=== PATIENT | female | born 1985 | race American Indian/Alaskan Native ===

== ENCOUNTER 2016-08-29 13:35 | Emergency (ER) | payer MEDICAID ==
[2016-08-29 13:52] VITALS: RESP 18
[2016-08-29] MEDS ORDERED: IBUPROFEN 600 MG TAB PO ONE (14:00)
--- NOTE | 2016-08-29 14:27 | EDPHY ---
H & P Time Seen by Provider: 08/29/16 13:52 HPI/ROS: HPI: 22-year-old female presents to emergency department with chief concern left-sided rib pain and shortness of breath. Onset suddenly this morning at 1130 when she tripped, falling, landing on her daughter's bike. Did not strike her head or incur other injury. Denies headache, dizziness, neck or back pain. Denies fever, chills, nasal congestion, cough, pleuritic chest pain, abdominal pain, nausea or vomiting. No aggravating or alleviating factors. Denies significant past medical history. ROS:10 point review of systems is negative other than as stated in HPI Smoking Status: Current every day smoker Physical Exam: Vital signs stable, reviewed by me General: Awake, alert, calm, cooperative. No acute distress. Head: Normalocephalic. Atraumatic. EENT: PERRLA. EOMI. No pallor or injection. Anicteric. No nystagmus. No injection. TMs intact bilaterally with normal landmarks. Neck: Supple, no midline tenderness. Full range of motion Respiratory: Breathing unlabored. Breath sounds equal bilaterally and clear to auscultation. No adventitious sounds. CV: Chest with left-sided point tenderness that is reproducible. Heart rate regular. S1/S2. No murmur, distal pulses 2+ bilaterally. Brisk cap refill all extremities. GI: Abdomen soft, nontender. Bowel sounds normoactive and positive x4 quadrants. : No CVA or flank tenderness. Neuro: Alert. Oriented x 3. Speech clear. Nonfocal cranial nerves throughout. Sensation intact all extremities. Skin: Skin warm, dry, intact. No rashes, abrasions, or lacerations. Skin turgor normal. Extremities: Full range of motion in all 4 extremities. Strength 5+ all extremities. Constitutional: Initial Vital Signs Temperature (C) 36.5 C 08/29/16 13:48 Heart Rate 81 08/29/16 13:48 Respiratory Rate 18 08/29/16 13:48 Blood Pressure 97/78 L 08/29/16 13:48 O2 Sat (%) 97 08/29/16 13:48 O2 Delivery Mode Room Air Allergies/Adverse Reactions: Penicillins Allergy (Verified 08/29/16 13:48) Home Medications: Medication Instructions Recorded Hydrocodone/APAP 5/325 [[place] 1 tab PO Q4H PRN #10 tab 08/29/16325 (*)] Medical Decision Making - Diagnostics Imaging: Final report pending at time of this dictation however there is no evidence of pneumothorax or rib fractures that I appreciate. ED Course/Re-evaluation: 22-year-old female presents to emergency department with left-sided rib pain after a fall today. Did not strike her head. No neck or back pain. No evidence of pneumothorax on chest x-ray. No visible fractures to left ribs on x -ray. Differential Diagnosis: Differential includes but is not limited to rib fracture, rib contusion, pneumothorax - Data Points Medications Given: Discontinued Medications Ibuprofen (Motrin) 600 mg PO EDNOW ONE Stop: 08/29/16 14:01 Last Admin: 08/29/16 14:03 Dose: 600 mg Departure - Departure Disposition: Home, Routine, Self-Care Clinical Impression: Contusion of rib on left side Qualifiers: Encounter type: initial encounter Qualified Code(s): S20.212A - Contusion of left front wall of thorax, initial encounter Condition: Good Instructions: Rib Contusion (ED) Additional Instructions: Plan: You may use 600 mg of ibuprofen every 6 hours for fever, inflammation, or pain. Always take ibuprofen with food and stay well hydrated while taking. Do not exceed the maximum allowable dose in a 24 hour period which is 2400 mg. For more severe pain, 1 [place] every 4 hours as needed--Never drink or drive while taking this medication. This medication impairs decision making capacity so do not work or sign important documents while taking. This medication its constipating so drink plenty of fluids and consider an [id number] stool softener such as docusate sodium (Colace) while taking this medication. This medication has addictive properties. You should use the least amount for the shortest amount of time. [facility] do not refill narcotic pain medication prescriptions. This is a hospital policy. You will need to follow up as indicated for recheck for further narcotic refills. [facility] within the next 2-3 days for recheck without fail-- When you call to schedule appointment, please let the office know you are an " ER follow up" appointment" 12-15 conscious deep breaths hourly while awake to help prevent pneumonia Referrals: NONE *PRIMARY CARE P,. [Primary Care Provider] - As per Instructions [facility] [Outside] - As per Instructions Stand Alone Forms: Statement of Treatment Prescriptions: Hydrocodone/APAP 5/325 [[place] 5/325 (*)] 1 tab PO Q4H PRN #10 tab PRN Reason: Pain, Moderate
[2016-08-29 14:59] VITALS: BP 119/67; PULSE 60; TEMP 97.9; O2SAT 98
== END 2016-08-29 14:59 | disposition home or self-care (01) ==
DX: S20.212A Contusion of left front wall of thorax, initial encounter (principal); F17.200 Nicotine dependence, unspecified, uncomplicated; W01.0XXA Fall on same level from slipping, tripping and stumbling without subsequent striking against object, initial encounter

== ENCOUNTER 2016-09-02 14:24 | Emergency (ER) | payer MEDICAID ==
[2016-09-02 14:29] VITALS: PULSE 82; RESP 16; O2SAT 100
--- NOTE | 2016-09-02 15:02 | EDPHY ---
H & P Stated Complaint: Here 4 days ago w/R rib inj;felt pop this a.m when she stretched Time Seen by Provider: 09/02/16 14:53 HPI/ROS: CHIEF COMPLAINT: LEFT RIB PAIN HISTORY OF PRESENT ILLNESS: Patient is a 30-year-old female who was seen here 3 days ago complaining of left-sided rib pain. She fell onto her child bike. She had bruising to her left rib cage. X-rays were unremarkable for fractures and she is discharged with pain medication and diagnosis of contusion. She states that today she was rolling over in bed and stretched and her loud pop and had sudden pain. She denies shortness of breath. The pain has been severe ever since. REVIEW OF SYSTEMS: Constitutional: denies: chills, fever, recent illness, recent injury EENTM: denies: blurred vision, double vision, nose congestion Respiratory: denies: cough, shortness of breath Cardiac: denies: chest pain, irregular heart rate, lightheadedness, palpitations Gastrointestinal/Abdominal: denies: abdominal pain, diarrhea, nausea, vomiting, blood streaked stools Genitourinary: denies: dysuria, frequency, hematuria, pain Musculoskeletal: See HPI Skin: denies: lesions, rash, jaundice, bruising Neurological: denies: headache, numbness, paresthesia, tingling, dizziness, weakness Hematologic/Lymphatic: denies: blood clots, easy bleeding, easy bruising Immunologic/allergic: denies: HIV/AIDS, transplant EXAM: GENERAL: Well-appearing, well-nourished and in no acute distress. HEAD: Atraumatic, normocephalic. EYES: Pupils equal round and reactive to light, extraocular movements intact, sclera anicteric, conjunctiva are normal. ENT: TMs normal, nares patent, oropharynx clear without exudates. Moist mucous membranes. NECK: Normal range of motion, supple without lymphadenopathy or JVD. LUNGS: Left-sided midline axillary rib bruising tenderness. No crepitus. with Breath sounds clear to auscultation bilaterally and equal. No wheezes rales or rhonchi. HEART: Regular rate and rhythm without murmurs, rubs or gallops. ABDOMEN: Soft, nontender, normoactive bowel sounds. No guarding, no rebound. No masses appreciated. BACK: No CVA tenderness, no spinal tenderness, step-offs or deformities EXTREMITIES: Normal range of motion, no pitting or edema. No clubbing or cyanosis. NEUROLOGICAL: Cranial nerves II through XII grossly intact. Normal speech, normal gait. 5/5 strength, normal movement in all extremities, normal sensation PSYCH: Normal mood, normal affect. SKIN: Warm, dry, normal turgor, no visible rashes or lesions. Source: Patient Exam Limitations: No limitations - Personal History LMP (Females 10-55): 8-14 Days Ago Current Tetanus Diphtheria and Acellular Pertussis (TDAP): Yes - Medical/Surgical History Hx Asthma: No Hx Chronic Respiratory Disease: No Hx Diabetes: No Hx Cardiac Disease: No Hx Renal Disease: No Hx Cirrhosis: No Hx Alcoholism: No Hx HIV/AIDS: No Hx Splenectomy or Spleen Trauma: No Other PMH: appy - Family History Significant Family History: No pertinent family hx - Social History Smoking Status: Current every day smoker Alcohol Use: Sober Drug Use: None Constitutional: Initial Vital Signs Temperature (C) 36.4 C 09/02/16 14:25 Heart Rate 82 09/02/16 14:25 Respiratory Rate 16 09/02/16 14:25 Blood Pressure 107/70 09/02/16 14:25 O2 Sat (%) 100 09/02/16 14:25 O2 Delivery Mode Room Air Allergies/Adverse Reactions: Penicillins Allergy (Verified 09/02/16 14:24) Home Medications: Medication Instructions Recorded Hydrocodone/APAP 5/325 [[place] 1 tab PO Q4H PRN #10 tab 08/29/16 5/325 (*)] oxyCODONE/APAP 5/325 [Percocet 1 - 2 tab PO Q4H PRN #20 tab 09/02/16 5/325 (*)] Medical Decision Making - Diagnostics Imaging: X-ray: chest x-ray was obtained. I viewed the images myself on the PACS system. My interpretation of the images is: Nondisplaced rib fracture. The radiologist interpretation is pending. ED Course/Re-evaluation: 3:30 p.m. we discussed the x-ray results. I will treat the patient with Percocet for pain. She states the Vicodin not work well. She is also requesting a work note. 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 Differential Diagnosis: Partial list of the Differential diagnosis considered include but were not limited to; contusion, fracture, pneumothorax and although unlikely based on the history and physical exam, I also considered pneumonia, PE, acute coronary disease. I discussed these differential diagnoses and the plan with the patient as well as the usual and expected course. The patient understands that the diagnosis is provisional and that in medicine we are not always correct and that further workup is often warranted. Usual and customary warnings were given. All of the patient's questions were answered. The patient was instructed to return to the emergency department should the symptoms at all worsen or return, otherwise to followup with the physician as we discussed. Departure - Departure Disposition: Home, Routine, Self-Care Clinical Impression: Closed rib fracture Qualifiers: Encounter type: initial encounter Rib fracture type: single rib Laterality: left Qualified Code(s): S22.32XA - Fracture of one rib, left side, initial encounter for closed fracture Condition: Fair Instructions: Rib Fracture (ED) Referrals: Hudson Liu MD [Medical Doctor] - As per Instructions Stand Alone Forms: Work Limited Duty Prescriptions: oxyCODONE/APAP 5/325 [Percocet 5/325 (*)] 1 - 2 tab PO Q4H PRN #20 tab PRN Reason: Pain, Severe
[2016-09-02] MEDS ORDERED: ACETAMINOPHEN 500 MG TAB ONE (15:05)
[2016-09-02 15:49] VITALS: BP 114/86; TEMP 97.7
== END 2016-09-02 15:49 | disposition home or self-care (01) ==
DX: S22.32XA Fracture of one rib, left side, initial encounter for closed fracture (principal); F17.200 Nicotine dependence, unspecified, uncomplicated; X58.XXXA Exposure to other specified factors, initial encounter; Y93.89 Activity, other specified

== ENCOUNTER 2017-08-18 09:53 | Emergency (ER) | payer SELFPAY ==
[2017-08-18 09:59] VITALS: BP 104/77; PULSE 82; RESP 16; TEMP 97.9; O2SAT 99
--- NOTE | 2017-08-18 10:23 | EDPHY ---
H & P Smoking Status: Current every day smoker Time Seen by Provider: 08/18/17 10:17 HPI/ROS: Chief complaint: Heavy menstrual cycle with clot passage History of present illness: This is a 31-year-old female who presents to the emergency department for evaluation of a heavy menstrual cycle. Patient states she started her menstrual cycle 2 days ago. This is normal for her. She is regular. However it appears more heavy than usual. There has been some clot passage. She denies other associated signs or symptoms including no actual pain associated with the bleeding. No systemic symptoms such as lightheadedness , dizziness or fatigue. Review of systems: A 10 point review of systems was obtained and other than described above was negative (Burt Zimmerman) Physical Exam: General Appearance: Alert, nontoxic. Eyes: Pupils equal and round no injection. Respiratory: Chest is non tender, lungs are clear to auscultation. Cardiac: regular rate and rhythm Gastrointestinal: Abdomen is soft and non tender, no masses, bowel sounds normal. Musculoskeletal: Neck is supple and non tender. Extremities have full range of motion and are non tender. Skin: No rashes or lesions. (Burt Zimmerman) Constitutional: Initial Vital Signs Temperature (C) 36.6 C 08/18/17 09:57 Heart Rate 82 08/18/17 09:57 Respiratory Rate 16 08/18/17 09:57 Blood Pressure 104/77 08/18/17 09:57 O2 Sat (%) 99 08/18/17 09:57 O2 Delivery Mode Room Air Allergies/Adverse Reactions: Penicillins Allergy (Verified 08/18/17 09:56) Home Medications: Medication Instructions Recorded NK [No Known Home Meds] 08/18/17 MDM/Departure - [facility] ED Course/Re-evaluation: Patient seen under the supervision of my secondary supervising physician Dr. Emilie Mao. Patient presents to the emergency department with a heavy menstrual cycle. She is nontoxic. Vital signs are stable. Blood studies are unremarkable. I believe patient is appropriate for discharge home. Home care is discussed. Return precautions are given. Patient voiced understanding and agreement with plan. (Burt Zimmemran) The patient was evaluated and managed by the physician histology assistant. I have reviewed this chart and I agree with the findings and plan of care as documented , as indicated by my signature. I am the secondary supervising physician. ( Emilie Mao) Differential Diagnosis: Included but not limited to menstrual cycle, with associated complications (Burt Zimmerman) - Depart Disposition: Home, Routine, Self-Care Clinical Impression: Heavy menstrual bleeding Condition: Good Instructions: Menorrhagia (ED) Additional Instructions: Follow-up with a primary care doctor for recheck If symptoms worsen or new symptoms develop return to the emergency room for recheck Stand Alone Forms: Work Excuse Referrals: NONE *PRIMARY CARE P,. [Primary Care Provider] - As per Instructions [facility],. [Clinic] - As per Instructions
[2017-08-18 10:45] LABS: PLATELET COUNT 277 10^3/uL (150-400)
== END 2017-08-18 11:47 | disposition home or self-care (01) ==
DX: N92.0 Excessive and frequent menstruation with regular cycle (principal); F17.200 Nicotine dependence, unspecified, uncomplicated

== ENCOUNTER 2017-11-17 01:46 | Emergency (ER) | payer SELFPAY ==
--- NOTE | 2017-11-17 01:50 | EDPHY ---
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 Patient denies any injuries, denies loss of consciousness, denies any recent trauma. Patient denies coingestion, patient denies suicidal or homicidal behavior. REVIEW OF SYSTEMS: Constitutional: No fever, no chills. Eyes:No visual changes. ENT: No sore throat. Respiratory: No cough, no shortness of breath. Cardiac: No chest pain. Gastrointestinal: No abdominal pain, vomiting or diarrhea. Genitourinary: No hematuria. Musculoskeletal: No back pain. Skin: No rashes. Neurological: No headache. PAST MEDICAL HISTORY: None PAST SURGICAL HISTORY: None SOCIAL HISTORY:drinks alcohol occasionally PHYSICAL EXAM: General Appearance: Alert, well hydrated, appropriate, and non-toxic appearing. Head: Atraumatic without scalp tenderness or obvious injury Eyes: Pupils equal, round, reactive to light, no injection. Ears: Clear bilaterally, no perforation, normal landmarks Nose: Atraumatic, no rhinorrhea, clear. Throat: mucus membranes moist. Neck: Supple, non-tender, no lymphadenopathy. Respiratory: No retractions, no distress, no wheezes, and no accessory muscle use. Lungs are clear to auscultation bilaterally. Cardiovascular: Regular rate and rhythm, no murmurs, rubs, or gallops. Gastrointestinal: Abdomen is soft, non-tender, non-distended Musculoskeletal: Normal active ROM of all extremities, atraumatic. Neurological: Alert, appropriate, and interactive. Moves all extremities equally. Skin: No rashes, good turgor, no nodules on palpation. MEDICAL DECISION MAKING: I serially examined this patient since the patient's arrival here in the emergency department. The patient continues to become more and more sober with each examination. I serially questioned the patient and the patient's story given initially has not changed. The patient still denies any trauma, any head injury, and any illicit drug use. At this point, the patient is walking the department freely and is clinically sober. We're discharging the patient to the [facility] in stable condition. Source: Patient, EMS Exam Limitations: Intoxication - Personal History LMP (Females 10-55): 8-14 Days Ago Current Tetanus Diphtheria and Acellular Pertussis (TDAP): Yes - Medical/Surgical History Hx Asthma: No Hx Chronic Respiratory Disease: No Hx Diabetes: No Hx Cardiac Disease: No Hx Renal Disease: No Hx Cirrhosis: No Hx Alcoholism: No Hx HIV/AIDS: No Hx Splenectomy or Spleen Trauma: No Other PMH: appy - Social History Smoking Status: Current every day smoker Constitutional: Initial Vital Signs Temperature (C) 36.4 C 11/17/17 01:48 Heart Rate 120 H 11/17/17 01:48 Respiratory Rate 16 11/17/17 01:48 Blood Pressure 119/76 11/17/17 01:48 O2 Sat (%) 95 11/17/17 01:48 O2 Delivery Mode Room Air Allergies/Adverse Reactions: Penicillins Allergy (Verified 11/17/17 01:47) sulfamethoxazole [From Bactrim] Allergy (Verified 11/17/17 01:47) trimethoprim [From Bactrim] Allergy (Verified 11/17/17 01:47) Home Medications: Medication Instructions Recorded NK [No Known Home Meds] 08/18/17 Departure - Departure Disposition: Home, Routine, Self-Care Clinical Impression: Tachycardia Alcoholic intoxication Qualifiers: Complication of substance-induced condition: with delirium Qualified Code(s): F10.921 - Alcohol use, unspecified with intoxication delirium Condition: Good Instructions: Alcohol Intoxication (ED) Referrals: [facility] [Outside] - As per Instructions
[2017-11-17 02:59] VITALS: BP 98/52
== END 2017-11-17 05:26 | disposition home or self-care (01) ==
LOC: EDUNIT#
DX: F10.921 Alcohol use, unspecified with intoxication delirium (principal); R00.0 Tachycardia, unspecified; F17.200 Nicotine dependence, unspecified, uncomplicated